=== PATIENT | female | born 1995 | race Caucasian/White ===

== ENCOUNTER 2017-12-09 14:04 | Outpatient (CLI) | payer MEDICAID | END 2017-12-09 14:05 | disposition critical access hospital (66) | LOC: EMS 14:04 | PROVIDERS: ATTEND Surgery | DX: R51 Headache (principal); R11.0 Nausea; W18.39XA Other fall on same level, initial encounter | CPT/HCPCS: A0425; A0429; A0999 ==

== ENCOUNTER 2017-12-09 14:32 | Emergency (ER) | payer MEDICAID ==
--- NOTE | 2017-12-09 15:11 | ED Physician Documentation ---
PD HPI HEAD INJURY - Stated complaint Stated Complaint: GLF - Chief complaint Chief Complaint: Neuro - History obtained from History obtained from: Patient - History of Present Illness Mechanism of head injury: Fell Where head injury occurred: Home Timing - onset: Enter time (1100), Today Location of injury: Back Quality of pain: Pain Associated symptoms: AMS, Nausea / vomiting. No: LOC Symptoms improve with: Rest Symptoms worsen with: Palpation, Movement Similar symptoms before: Has not had sx before Recently seen: Not recently seen - Additional information Additional information: 22-year-old female was her home this morning when she was knocked over by a [employer]. She fell onto her buttocks and hit the back of her head. She has a headache and she is having some trouble concentrating. She was sent home from work today when she was reacting to things quite slowly. She does acknowledge some mild nausea without vomiting she has had a little bit of dizziness as well. Review of Systems Constitutional: denies: Fever Eyes: denies: Decreased vision Ears: denies: Ear pain Nose: denies: Rhinorrhea / runny nose, Congestion Throat: denies: Sore throat Cardiac: denies: Chest pain / pressure Respiratory: denies: Dyspnea, Cough GI: reports: Nausea. denies: Abdominal Pain, Vomiting : denies: Dysuria, Frequency Skin: reports: Abrasion (s) (to abdomen). denies: Rash Musculoskeletal: denies: Neck pain, Back pain, Extremity pain Neurologic: denies: Generalized weakness, Focal weakness, Numbness PD PAST MEDICAL HISTORY - Past Medical History Past Medical History: Yes Psych: Depression, Anxiety - Past Surgical History Past Surgical History: No - Present Medications Home Medications: Ambulatory Orders Medication Instructions Recorded Confirmed Sertraline [Zoloft] mg PO DAILY 12/09/17 traZODone [Desyrel] mg PO ONCE 12/09/17 - Allergies Allergies/Adverse Reactions: Allergies Allergy/AdvReac Type Severity Reaction Status Date / Time bee venom protein (honey bee) Allergy Anaphylaxis Verified 12/09/17 14:45 - Social History Does the pt smoke?: No Smoking Status: Never smoker Does the pt drink ETOH?: No Does the pt have substance abuse?: No - Immunizations Immunizations are current?: No Immunizations: TDAP >10years/unknown PD ED PE NORMAL - Vitals Vital signs reviewed: Yes (hypertensive ) - General General: Alert and oriented X 3, No acute distress, Well developed/nourished, Other (There is some delay in execution of motor commands. ) - HEENT HEENT: PERRL, EOMI, Other (cerumen bilaterally tenderness to the occiput is mild .) - Neck Neck: Supple, no meningeal sign, No bony TTP - Cardiac Cardiac: RRR, No murmur - Respiratory Respiratory: No respiratory distress, Clear bilaterally - Abdomen Abdomen: Soft, Non tender, Other (There is a superficial abrasion to the lower abdominal wall. 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, No motor deficit, No sensory deficit, Normal speech, Other (The patient performs poorly on serial seven's.) Eye Opening: Spontaneous Motor: Obeys Commands Verbal: Oriented GCS Score: 15 - Psych Psych: Normal mood, Normal affect Results - Vitals Vitals: Vital Signs - 24 hr 12/09/17 14:37 Temperature 36.3 C L Heart Rate 95 Respiratory 16 Rate Blood Pressure 144/70 H O2 Saturation 99 Oxygen O2 Source Room air - Rads (name of study) CT head Radiology: Prelim report reviewed (Impression: Normal head CT.), EMP read indepedently, See rad report PD MEDICAL DECISION MAKING - ED course Complexity details: reviewed results, re-evaluated patient, considered differential, d/w patient ED course: 22-year-old female with a concussion after being knocked over by a dog as a normal head CT. We will take her out of work for 2 days and have given her instructions about concussion management to include avoidance of any head injury. She did receive local wound care and tetanus booster. - Sepsis Event Vital Signs: Vital Signs - 24 hr 12/09/17 14:37 Temperature 36.3 C L Heart Rate 95 Respiratory 16 Rate Blood Pressure 144/70 H O2 Saturation 99 Oxygen O2 Source Room air Departure - Departure Disposition: 01 Home, Self Care Clinical Impression: Animal scratch Concussion Qualifiers: Encounter type: initial encounter Loss of consciousness presence/duration: without LOC Qualified Code(s): S06.0X0A - Concussion without loss of consciousness, initial encounter Condition: Stable Instructions: ED Concussion, ED Abrasion Follow-Up: [facility] [Provider Group] Forms: Activity restrictions
[2017-12-09] MEDS ORDERED: TETANUS/DIPHTHERIA/PERTUSSIS 0.5 ML SYRINGE IM ONE (15:14)
[2017-12-09] MEDS ORDERED: BACITRACIN OINT TOP ONE (15:39)
--- NOTE | 2017-12-09 15:47 | CT Report ---
Procedure Date: 12/09/2017 Accession Number: [id number] / [id number] Procedure: CT - Head W/O CPT Code: FULL RESULT: EXAM: CT HEAD EXAM DATE: 12/09/2017 03:38 PM. CLINICAL HISTORY: Fall. Concussion. Memory loss. COMPARISON: None. TECHNIQUE: Multiaxial CT images were obtained from the foramen magnum to the vertex. Reformats: Coronal. IV contrast: None. In accordance with CT protocol optimization, one or more of the following dose reduction techniques were utilized for this exam: automated exposure control, adjustment of mA and/or KV based on patient size, or use of iterative reconstructive technique. FINDINGS: Parenchyma: No intraparenchymal hemorrhage. No evidence of mass, midline shift, or CT findings of infarction. Alxe-white differentiation is distinct. Extraaxial Spaces: Normal for age. No subdural or epidural collections identified. Ventricles: Normal in size and position. Sinuses and Orbits: Imaged paranasal sinuses, orbits, and mastoids show no significant abnormality. Bones: No evidence of fracture or calvarial defect. Other: None. IMPRESSION: Normal head CT. RADIA
[2017-12-09 16:17] VITALS: BP 116/62
== END 2017-12-09 16:16 | disposition home or self-care (01) ==
LOC: ED 14:32
DX: S06.0X0A Concussion without loss of consciousness, initial encounter (principal); S30.811A Abrasion of abdominal wall, initial encounter; Z23 Encounter for immunization; W01.10XA Fall on same level from slipping, tripping and stumbling with subsequent striking against unspecified object, initial encounter; Y92.009 Unspecified place in unspecified non-institutional (private) residence as the place of occurrence of the external cause
CPT/HCPCS: 70450; 90471; 90715; 99283; A9270

== ENCOUNTER 2018-03-25 22:19 | Outpatient (CLI) | payer MEDICAID | END 2018-03-25 22:20 | disposition critical access hospital (66) | LOC: EMS 22:19 | PROVIDERS: ATTEND Surgery | DX: R07.9 Chest pain, unspecified (principal) | CPT/HCPCS: A0425; A0429; A0999 ==

== ENCOUNTER 2018-03-25 22:42 | Emergency (ER) | payer MEDICAID ==
--- NOTE | 2018-03-25 22:46 | ED Physician Documentation ---
PD HPI CHEST PAIN - Stated complaint Stated Complaint: CP, HEART RACING - History obtained from History obtained from: Patient - History of Present Illness Timing - onset: Enter time (22:00), Today Timing - onset during: Light activity Timing - details: Abrupt onset Pain level now: 4 Quality: Pain (burning) Location: Substernal Radiation: Abdominal, Right upper extremity Improved by: Nothing Worsened by: Other (no exacerbating factors) Associated symptoms: Shortness of air, Palpitations Similar symptoms before: Has not had sx before Recently seen: Not recently seen Review of Systems Constitutional: reports: Reviewed and negative Cardiac: reports: Chest pain / pressure, Palpitations Respiratory: reports: Dyspnea GI: reports: Abdominal Pain. denies: Nausea, Vomiting PD PAST MEDICAL HISTORY - Past Medical History Psych: Depression, Anxiety - Past Surgical History Past Surgical History: No - Present Medications Home Medications: Ambulatory Orders Medication Instructions Recorded Confirmed Bupropion HCl [Bupropion Xl] 03/25/18 Norgestimate-Ethinyl Estradiol 03/25/18 [Tri-Linyah Tablet] Quetiapine Fumarate 03/25/18 - Allergies Allergies/Adverse Reactions: Allergies Allergy/AdvReac Type Severity Reaction Status Date / Time nut - unspecified Allergy Severe Anaphylaxis Verified 03/25/18 22:53 bee venom protein (honey bee) Allergy Anaphylaxis Verified 03/25/18 22:52 - Social History Does the pt smoke?: No Smoking Status: Never smoker Does the pt drink ETOH?: No Does the pt have substance abuse?: No - Immunizations Immunizations are current?: No Immunizations: TDAP >10years/unknown PD ED PE NORMAL - Vitals Vital signs reviewed: Yes - General General: Alert and oriented X 3, No acute distress, Well developed/nourished - Cardiac Cardiac: RRR, No murmur, No gallop, No rub - Respiratory Respiratory: No respiratory distress, Clear bilaterally - Abdomen Abdomen: Soft, Non distended, Other (mild TTP epigastrium and RUQ) - Back Back: No CVA TTP Results - Vitals Vitals: Oxygen O2 Source Room air - Labs Labs: Laboratory Tests 03/25/18 03/25/18 03/25/18 23:50 23:50 23:50 WBC 11.9 H RBC 4.51 Hgb 12.6 Hct 36.9 L MCV 81.8 MCH 28.0 MCHC 34.3 RDW 13.7 Plt Count 238 MPV 8.1 Neut # (Auto) 7.5 H Lymph # (Auto) 3.1 Mcdowell # (Auto) 0.9 Eos # (Auto) 0.2 Baso # (Auto) 0.1 Absolute Nucleated RBC 0.00 Nucleated RBC % 0.0 Sodium 134 L Potassium 3.4 L Chloride 99 L Carbon Dioxide 22 Anion Gap 13.0 BUN 13 Creatinine 0.8 Estimated GFR (MDRD) 90 Glucose 259 H Calcium 8.8 Total Bilirubin 0.4 AST 22 ALT 22 Alkaline Phosphatase 85 Troponin I < 0.04 Total Protein 7.2 Albumin 3.5 Globulin 3.7 Albumin/Globulin Ratio 0.9 L Lipase 19 L Ur Specific [place] Urine HCG, Qual 03/26/18 00:00 WBC RBC Hgb Hct MCV MCH MCHC RDW Plt Count MPV Neut # (Auto) Lymph # (Auto) Mcdowell # (Auto) Eos # (Auto) Baso # (Auto) Absolute Nucleated RBC Nucleated RBC % Sodium Potassium Chloride Carbon Dioxide Anion Gap BUN Creatinine Estimated GFR (MDRD) Glucose Calcium Total Bilirubin AST ALT Alkaline Phosphatase Troponin I Total Protein Albumin Globulin Albumin/Globulin Ratio Lipase Ur Specific [place] 1.020 Urine HCG, Qual NEGATIVE - Rads (name of study) chest xray Radiology: Prelim report reviewed, See rad report RUQ US Radiology: Prelim report reviewed, See rad report PD MEDICAL DECISION MAKING - ED course Complexity details: reviewed results, re-evaluated patient, considered differential, d/w patient Departure - Departure Disposition: 01 Home, Self Care Clinical Impression: Chest pain Condition: Good Instructions: ED Chest Pain Atypical Unkn Cause, ED Hyperglycemia Jones cuenca Follow-Up: [facility] [Provider Group] [facility] [Provider Group] Comments: The tests performed tonight in the emergency department do not show what caused your symptoms. If your symptoms persist, your doctor might order further tests. If your symptoms worsen, you can always return to the emergency department for reevaluation. Your blood sugar was elevated tonight. This does not require further testing in the emergency department nor treatment, such as medications, at this time. However, you need to follow up with your doctor to have further testing. Call your doctor's office in the morning to arrange for next available appointment; if possible, it would be best to arrange an appointment by the end of the week. Discharge Date/Time: 03/26/18 01:25
[2018-03-25 23:59] LABS: BASOPHILS # (AUTO) 0.1 10^3/uL (0.0-0.1); BASOPHILS % (AUTO) 0.8 %; EOSINOPHILS # (AUTO) 0.2 10^3/uL (0.0-0.7); EOSINOPHILS % (AUTO) 1.5 %; HGB - HEMOGLOBIN 12.6 g/dL (12.0-16.0); LYMPHOCYTES # (AUTO) 3.1 10^3/uL (1.5-3.5); LYMPHOCYTES % (AUTO) 26.3 %; MEAN CORPUSCULAR HGB CONC 34.3 g/dL (32.0-36.0); MEAN CORPUSCULAR VOLUME 81.8 fL (81.0-99.0); MEAN PLATELET VOLUME 8.1 fL (7.9-10.8); MONOCYTES # (AUTO) 0.9 10^3/uL (0.0-1.0); MONOCYTES % (AUTO) 7.7 %; NEUTROPHILS # (AUTO) 7.5 10^3/uL (1.5-6.6); NEUTROPHILS % (AUTO) 63.7 %; PLT - PLATELET COUNT 238 10^3/uL (130-450); RED BLOOD COUNT 4.51 10^6/uL (4.20-5.40); RED CELL DISTRIBUTION WIDTH 13.7 % (12.0-15.0); WHITE BLOOD COUNT 11.9 x10^3/uL (4.8-10.8)
[2018-03-26 00:10] LABS: ALBUMIN 3.5 g/dL (3.2-5.5); ALBUMIN/GLOBULIN RATIO 0.9 (1.0-2.2); BILIRUBIN,TOTAL 0.4 mg/dL (0.2-1.0); CALCIUM 8.8 mg/dL (8.5-10.3); CREATININE 0.8 mg/dL (0.4-1.0); TOTAL PROTEIN 7.2 g/dL (6.7-8.2)
[2018-03-26 00:20] LABS: HCG UR QUAL NEGATIVE
--- NOTE | 2018-03-26 00:50 | Ultrasound Report ---
Reason: epigastric/RUQ pain Procedure Date: 03/26/2018 Accession Number: [id number] / [id number] Procedure: US - Abdomen Limited CPT Code: FULL RESULT: EXAM: ABDOMEN ULTRASOUND LIMITED, RUQ EXAM DATE: 03/26/2018 12:04 AM. CLINICAL HISTORY: Epigastric/right upper quadrant pain. COMPARISON: None. TECHNIQUE: Real-time scanning was performed with static images obtained. FINDINGS: Liver: Echogenic without gross focal abnormality seen. Main portal vein flow: Hepatopetal. Gallbladder: Normal. No stones, wall thickening, or sonographic Rivera's sign. Biliary System: CBD measures 4 mm. No intrahepatic or extrahepatic ductal dilatation. Other: Visualized portions of the pancreas and right kidney are unremarkable. IMPRESSION: 1. Gallbladder appears normal. 2. Fatty liver. RADIA
--- NOTE | 2018-03-26 01:07 | XRAY Report ---
Reason: chest pain Procedure Date: 03/26/2018 Accession Number: [id number] / [id number] Procedure: XR - Chest 2 View X-Ray CPT Code: 39312 FULL RESULT: EXAM: CHEST RADIOGRAPHY EXAM DATE: 03/26/2018 12:41 AM. CLINICAL HISTORY: Chest pain. COMPARISON: None. TECHNIQUE: 2 views. FINDINGS: Lungs/Pleura: No focal opacities evident. No pleural effusion. No pneumothorax. Normal volumes. Mediastinum: Heart and mediastinal contours are unremarkable. Other: None. IMPRESSION: Normal 2-view chest radiography. RADIA
[2018-03-26 01:08] VITALS: BP 109/79
== END 2018-03-26 01:25 | disposition home or self-care (01) ==
LOC: EDUNIT# → ED 22:42
DX: R07.9 Chest pain, unspecified (principal)
CPT/HCPCS: 36415; 71046; 76705; 80053; 81025; 83690; 84484; 85025; 93005; 99283